=== PATIENT | male | born 1945 | race Caucasian/White ===

== ENCOUNTER 2017-09-12 11:30 | Inpatient (IN) | payer MEDICARE ==
[~2017-09-12] VITALS: Ht 172.7 cm; Wt 97.4 kg
[~2017-09-12 11:30] MED LIST: ASPI-496 PO; CARV6.252 PO; FINA5TAB4 PO; HYDR12.58 PO; LOSA25TA5 PO; POTA10TA5 PO; SIMV20TA3 PO; VITA1TAB19 PO
[2017-09-12 12:03] LABS: MEAN CORPUSCULAR HEMOGLOBIN 33.8 pg (27.5-34.5); MEAN CORPUSCULAR HGB CONC 33.9 g/dL (33.2-36.2); MEAN CORPUSCULAR VOLUME 99.5 fL (81-97); MEAN PLATELET VOLUME 7.3 fL (7.4-10.4); PLATELET COUNT 273 x10^3/uL (130-400); RED BLOOD COUNT 4.72 x10^6/uL (4.38-5.82); RED CELL DISTRIBUTION WIDTH 13.6 % (9.4-14.8)
[2017-09-12 12:08] LABS: MICROSCOPIC AUTO
[2017-09-12 12:09] LABS: CULTURE INDICATED? YES
[2017-09-12 12:13] LABS: INTERNATIONAL NORMALIZED RATIO 0.94 (0.93-1.1); PROTHROMBIN TIME 9.8 Seconds (9.6-11.5)
[2017-09-12 12:14] LABS: ALANINE AMINOTRANSFERASE 16 U/L (12-78); ALBUMIN 3.6 g/dL (3.4-5.0); ANION GAP 6 mmol/L (5-15); CALCIUM 9.3 mg/dL (8.5-10.1); CHLORIDE 107 mmol/L (98-107); CREATININE 1.08 mg/dL (0.7-1.3)
[2017-09-12 12:16] LABS: ALKALINE PHOSPHATASE 94 U/L (45-117); BILIRUBIN,TOTAL 0.4 mg/dL (0.2-1.0); TOTAL PROTEIN 7.4 g/dL (6.4-8.2)
[2017-09-12 13:01] LABS: BASOPHILS % (AUTO) 1 % (0-1); EOSINOPHILS # (AUTO) 0.47 x10^3/uL (0-0.4); EOSINOPHILS % (AUTO) 3 % (1-7); LYMPHOCYTES # (AUTO) 8.31 x10^3/uL (1-3.4); LYMPHOCYTES % (AUTO) 46 % (22-44); MD SCAN; MONOCYTES # (AUTO) 1.14 x10^3/uL (0.2-0.8); MONOCYTES % (AUTO) 6 % (2-9); NEUTROPHILS # (AUTO) 8.11 x10^3/uL (1.8-6.8); NEUTROPHILS % (AUTO) 45 % (42-75)
[2017-09-14] MEDS ORDERED: BUPIVACAINE/PF 0.5% ONE (08:27)
[2017-09-14] MEDS ORDERED: BUPIVACAINE/PF-EPI 0.5% 1:200K ONE (08:27)
[2017-09-14] MEDS ORDERED: THROMBIN 5,000 UNIT VIAL TP ONE (08:27)
[2017-09-14] MEDS ORDERED: VANCOMYCIN 1,000 MG ONE (08:27)
[2017-09-14] MEDS ORDERED: BACITRACIN 50,000 UNIT ONE (08:27)
[2017-09-14] MEDS ORDERED: EPHEDRINE 50 MG/ML, 1ML ONE (10:58)
[2017-09-14] MEDS ORDERED: FENTANYL PF 250 MCG/5ML ONE ×2 (13:12→17:37)
[2017-09-14] MEDS ORDERED: ONDANSETRON 2MG/ML, 2ML ONE (13:34)
[2017-09-14] MEDS ORDERED: CEFAZOLIN 1,000 MG ONE (13:34)
[2017-09-14] MEDS ORDERED: NEOSTIGMINE 1 MG/ML, 10ML ONE (13:34)
[2017-09-14] MEDS ORDERED: SUCCINYLCHOLINE 20 MG/ML, 10ML ONE (13:34)
[2017-09-14] MEDS ORDERED: GLYCOPYRROLATE 0.2MG/1ML, 5ML ONE (13:34)
[2017-09-14] MEDS ORDERED: DEXAMETHASONE 4 MG/ML, 1ML ONE (13:34)
[2017-09-14] MEDS ORDERED: ROCURONIUM 10MG/ML,5ML ONE (13:34)
[2017-09-14] MEDS ORDERED: PROPOFOL 10 MG/ML, 20ML ONE (13:34)
[2017-09-14] MEDS ORDERED: CIPROFLOXACIN/PMX 400MG/200ML 200 ML IV STA (13:39)
[2017-09-14] MEDS ORDERED: ACETAMINOPHEN 500 MG TABLET PO ONE (14:00)
[2017-09-14] MEDS ORDERED: FAMOTIDINE 20 MG TABLET PO ONE (14:00)
[2017-09-14] MEDS ORDERED: LIDOCAINE-MPF 1%, 2ML INFIL ONE (14:00)
[2017-09-14] MEDS ORDERED: LACTATED RINGERS 1,000 ML IV SCH (14:00)
[2017-09-14] MEDS ORDERED: MIDAZOLAM 1 MG/ML, 2ML ONE (16:07)
[2017-09-14] MEDS ORDERED: ONDANSETRON ODT 8 MG PO PRN (17:00)
[2017-09-14] MEDS ORDERED: PROMETHAZINE 25 MG/ML, 1ML IV PRN (17:00)
[2017-09-14] MEDS ORDERED: FENTANYL PF 100 MCG/2ML IV PRN (17:00)
[2017-09-14] MEDS ORDERED: MORPHINE SULFATE 4 MG/ML, 1ML IVPush PRN (17:00)
[2017-09-14] MEDS ORDERED: OXYcodone 5 MG/5 ML ORAL.SOL UDC PO PRN (17:00)
[2017-09-14] MEDS ORDERED: hydrALAzine 20 MG/ML, 1ML IV PRN (17:00)
[2017-09-14] MEDS ORDERED: LORazepam 2 MG/ML, 1ML IVPush PRN (17:00)
[2017-09-14] MEDS ORDERED: PROMETHAZINE 25 MG/ML, 1ML IM PRN (19:00)
[2017-09-14] MEDS ORDERED: NS + 20MEQ KCL 1,000 ML IV SCH (19:00)
[2017-09-14] MEDS ORDERED: SENNA/DOCUSATE TABLET PO PRN (19:00)
[2017-09-14] MEDS ORDERED: DIPHENHYDRAMINE 50 MG CAPSULE PO PRN (19:00)
[2017-09-14] MEDS ORDERED: DIPHENHYDRAMINE 50 MG/ML, 1ML IVPush PRN (19:00)
[2017-09-14] MEDS ORDERED: MAGNESIUM HYDROXIDE 8%, 30ML UDC PO PRN (19:00)
[2017-09-14] MEDS ORDERED: PHARMACY MAY ADJ FOR RENAL FX MC PRN (19:00)
[2017-09-14] MEDS ORDERED: OXYcodone/APAP 5/325MG TABLET PO PRN (19:00)
[2017-09-14] MEDS ORDERED: ONDANSETRON 2MG/ML, 2ML IVPush PRN (19:00)
[2017-09-14] MEDS ORDERED: BISACODYL 10 MG SUPP PR PRN (19:00)
[2017-09-14] MEDS: LABETALOL 5MG/ML 40ML VIAL IVPush SCH (19:00)
[2017-09-14] MEDS: LABETALOL 5MG/ML, 20ML IV PRN ×2 (19:14→19:58)
[2017-09-14] MEDS ORDERED: OXYcodone 5 MG/5 ML ORAL.SOL UDC ONE (19:16)
[2017-09-14] MEDS: SODIUM CHLORIDE FLUSH 10ML SYR IVF SCH (21:00)
[2017-09-14] MEDS: POTASSIUM CHLORIDE 10 MEQ TABLET.ER PO SCH (21:33)
[2017-09-14] MEDS: CYCLOBENZAPRINE 10 MG TABLET PO PRN (21:33)
[2017-09-14] MEDS: SIMVASTATIN 20 MG TABLET PO SCH (21:33)
[2017-09-14] MEDS: CARVEDILOL 6.25 MG TABLET PO SCH (21:33)
[2017-09-14] MEDS: LOSARTAN 25MG TABLET PO SCH (21:33)
[2017-09-14] MEDS: MORPHINE SULFATE 4 MG/ML, 1ML IVPush PRN (23:08)
[2017-09-14 23:59] VITALS: BP 162/98
[2017-09-15] MEDS: CEFAZOLIN PMX 1GM/50ML 50 ML IVPB SCH ×2 (00:28→08:10)
[2017-09-15] MEDS: MORPHINE SULFATE 4 MG/ML, 1ML IVPush PRN ×2 (03:37→06:30)
[2017-09-15] MEDS: LABETALOL 5MG/ML 40ML VIAL IVPush SCH ×3 (04:00→21:10)
[2017-09-15 04:31] VITALS: BP 158/94
[2017-09-15 05:25] LABS: MEAN CORPUSCULAR HEMOGLOBIN 33.6 pg (27.5-34.5); MEAN CORPUSCULAR HGB CONC 33.4 g/dL (33.2-36.2); MEAN CORPUSCULAR VOLUME 100.5 fL (81-97); MEAN PLATELET VOLUME 7.3 fL (7.4-10.4); PLATELET COUNT 253 x10^3/uL (130-400); RED BLOOD COUNT 4.06 x10^6/uL (4.38-5.82); RED CELL DISTRIBUTION WIDTH 13.8 % (9.4-14.8)
[2017-09-15 05:31] LABS: ANION GAP 9 mmol/L (5-15); CALCIUM 8.2 mg/dL (8.5-10.1); CHLORIDE 108 mmol/L (98-107)
[2017-09-15 05:32] LABS: CREATININE 1.17 mg/dL (0.7-1.3)
[2017-09-15 05:45] LABS: BASOPHILS # (AUTO) 0.03 x10^3/uL (0-0.1); BASOPHILS % (AUTO) 0 % (0-1); EOSINOPHILS % (AUTO) 0 % (1-7); LYMPHOCYTES # (AUTO) 6.22 x10^3/uL (1-3.4); LYMPHOCYTES % (AUTO) 37 % (22-44); MD SCAN; MONOCYTES # (AUTO) 0.45 x10^3/uL (0.2-0.8); MONOCYTES % (AUTO) 3 % (2-9); NEUTROPHILS # (AUTO) 10.34 x10^3/uL (1.8-6.8); NEUTROPHILS % (AUTO) 61 % (42-75)
[2017-09-15] MEDS: CYCLOBENZAPRINE 10 MG TABLET PO PRN ×3 (06:02→22:25)
[2017-09-15] MEDS: CARVEDILOL 6.25 MG TABLET PO SCH ×2 (06:02→17:07)
[2017-09-15 07:09] VITALS: BP 154/96
[2017-09-15] MEDS: SODIUM CHLORIDE FLUSH 10ML SYR IVF SCH ×2 (08:01→21:10)
[2017-09-15] MEDS: POTASSIUM CHLORIDE 10 MEQ TABLET.ER PO SCH ×2 (08:10→21:09)
[2017-09-15] MEDS: LOSARTAN 25MG TABLET PO SCH ×2 (08:10→21:10)
[2017-09-15] MEDS: FINASTERIDE 5 MG TABLET PO SCH (08:10)
[2017-09-15] MEDS: HYDROCHLOROTHIAZIDE 12.5 MG CAPSULE PO SCH (08:10)
[2017-09-15] MEDS ORDERED: NICOTINE 14MG/24 HR PATCH.TD24 TD SCH (09:00)
[2017-09-15] MEDS: HYDROcodone/APAP 5/325 TABLET PO PRN ×4 (10:19→22:26)
[2017-09-15] MEDS: VANCOMYCIN 50 MG/ML ORAL SUSP PO SCH ×3 (11:05→21:10)
[2017-09-15] MEDS ORDERED: ENOXAPARIN 40 MG/0.4 ML SQ SCH (12:00)
[2017-09-15 14:30] VITALS: BP 157/106
[2017-09-15 16:15] VITALS: BP 157/90
[2017-09-15] MEDS: NS + 20MEQ KCL 1,000 ML IV SCH (17:08)
[2017-09-15 19:35] VITALS: BP 157/84
[2017-09-15] MEDS: SIMVASTATIN 20 MG TABLET PO SCH (21:09)
[2017-09-16] MEDS: HYDROcodone/APAP 5/325 TABLET PO PRN ×2 (03:01→06:47)
[2017-09-16 03:30] VITALS: BP 147/90
[2017-09-16] MEDS: LABETALOL 5MG/ML 40ML VIAL IVPush SCH (04:00)
[2017-09-16 05:41] LABS: MEAN CORPUSCULAR HEMOGLOBIN 33.9 pg (27.5-34.5); MEAN CORPUSCULAR VOLUME 99.7 fL (81-97); MEAN PLATELET VOLUME 7.4 fL (7.4-10.4); PLATELET COUNT 265 x10^3/uL (130-400); RED BLOOD COUNT 3.76 x10^6/uL (4.38-5.82); RED CELL DISTRIBUTION WIDTH 13.8 % (9.4-14.8)
[2017-09-16] MEDS: CARVEDILOL 6.25 MG TABLET PO SCH (05:45)
[2017-09-16] MEDS: VANCOMYCIN 50 MG/ML ORAL SUSP PO SCH (05:45)
[2017-09-16 05:46] LABS: ANION GAP 5 mmol/L (5-15); CALCIUM 8.7 mg/dL (8.5-10.1); CHLORIDE 107 mmol/L (98-107); CREATININE 0.97 mg/dL (0.7-1.3)
[2017-09-16 06:09] LABS: BASOPHILS # (AUTO) 0.08 x10^3/uL (0-0.1); BASOPHILS % (AUTO) 0 % (0-1); EOSINOPHILS # (AUTO) 0.18 x10^3/uL (0-0.4); EOSINOPHILS % (AUTO) 1 % (1-7); LYMPHOCYTES # (AUTO) 9.57 x10^3/uL (1-3.4); LYMPHOCYTES % (AUTO) 43 % (22-44); MD SCAN; MONOCYTES # (AUTO) 1.37 x10^3/uL (0.2-0.8); MONOCYTES % (AUTO) 6 % (2-9); NEUTROPHILS # (AUTO) 11.33 x10^3/uL (1.8-6.8); NEUTROPHILS % (AUTO) 50 % (42-75)
[2017-09-16] MEDS: CYCLOBENZAPRINE 10 MG TABLET PO PRN (06:47)
[2017-09-16] MEDS: NS + 20MEQ KCL 1,000 ML IV SCH (07:46)
[2017-09-16 08:30] VITALS: BP 149/83
[2017-09-16] MEDS ORDERED: [UNRECOGNIZED DRUG - CODE] PO (09:18)
[2017-09-16] MEDS ORDERED: HYDR-3307 PO (09:20)
[2017-09-16] MEDS ORDERED: CYCL5TAB PO (09:22)
[2017-09-16] MEDS: SODIUM CHLORIDE FLUSH 10ML SYR IVF SCH (09:32)
[2017-09-16] MEDS: POTASSIUM CHLORIDE 10 MEQ TABLET.ER PO SCH (09:32)
[2017-09-16] MEDS: HYDROCHLOROTHIAZIDE 12.5 MG CAPSULE PO SCH (09:32)
[2017-09-16] MEDS: FINASTERIDE 5 MG TABLET PO SCH (09:32)
[2017-09-16] MEDS: LOSARTAN 25MG TABLET PO SCH (09:32)
[2017-09-16 09:46] VITALS: BP 133/81
== END 2017-09-16 11:10 | disposition home or self-care (01) | DRG 854 ==
LOC: ORIP 09-14 12:49 → EDSTATUS 09-14 16:00 → 4NOR 09-14 20:15 → DCLOUNGE 09-16 10:52
PROVIDERS: ADMIT Neurological Surgery; ATTEND Neurological Surgery
PROC: 0RG2071 Fusion of 2 or more Cervical Vertebral Joints with Autologous Tissue Substitute, Posterior Approach, Posterior Column, Open Approach (ICD-10-PCS; principal; 2017-09-14 16:00)
DX: A41.9 Sepsis, unspecified organism (principal); N39.0 Urinary tract infection, site not specified; M50.023 Cervical disc disorder at C6-C7 level with myelopathy; M47.12 Other spondylosis with myelopathy, cervical region; M48.02 Spinal stenosis, cervical region; M40.202 Unspecified kyphosis, cervical region; M50.123 Cervical disc disorder at C6-C7 level with radiculopathy; Z91.048 Other nonmedicinal substance allergy status; Z86.718 Personal history of other venous thrombosis and embolism; I10 Essential (primary) hypertension; E78.00 Pure hypercholesterolemia, unspecified; Z86.711 Personal history of pulmonary embolism; F17.210 Nicotine dependence, cigarettes, uncomplicated
CPT/HCPCS: 36415; 71046; 72040; 80048; 80053; 81001; 85025; 85610; 85730; 87077; 87086; 87186; 93005; C1713; J0690; J0744; J1100; J1650; J2250; J2405; J2704; J2710; J3010; J3370; J3480; J3490; J0330; J7120